=== PATIENT | male | born 1955 | race Asian ===

== ENCOUNTER → 2018-02-24 | Outpatient (CLI) | payer MEDICARE | LOC: COL.RAD 11:06 | DX: M25.511 Pain in right shoulder (principal); M25.611 Stiffness of right shoulder, not elsewhere classified; Z99.2 Dependence on renal dialysis ==

== ENCOUNTER → 2018-03-22 | Outpatient (CLI) | payer MEDICARE, OTHER ==
[~2018-03-22] MED LIST: AMOXICILLIN/CLA1 TA1 PO; ASPIRIN 32325 MG/TA1 PO; CULTURELLE CAP1 EAC1 PO; ENULOSE10 GM/15 M; FOLIC ACID 11 MG/TA1 PO; GLUCAGON EMERGEN1 M1 SQ; HUMALOG100 U/ML SQ; LANTUS100 U/ML SQ; LEVAQUIN 5500 MG/TA1 PO; MELATONIN5 M1 SL; MUCINEX 60600 MG/TA1 PO; PRIL40 PO; ROXICODONE 55 MG/TAB PO; SYNTHROID0.1 MG/TAB PO; TYLENOL 325MG325 MG PO; ZOFRAN ODT4 MG PO
== END ==
LOC: COL.RAD 10:00
DX: J18.9 Pneumonia, unspecified organism (principal); G92 Toxic encephalopathy; N13.9 Obstructive and reflux uropathy, unspecified; R13.12 Dysphagia, oropharyngeal phase
CPT/HCPCS: G8996-GN; G8997-GN; G8998-GN

== ENCOUNTER 2018-03-27 08:43 | Inpatient (IN) | payer MEDICARE, OTHER ==
[~2018-03-27] VITALS: Ht 170.2 cm; Wt 82.6 kg
[2018-03-27] VITALS (612 sets, daily range): BP systolic 145–155; BP diastolic 72–90; PULSE 65–73; TEMP 96–97.6; O2SAT 91–100
[~2018-03-27 08:43] MED LIST changes: -ENULOSE10 GM/15 M; +ENULOSE10 GM/15 M PO; +MELATONIN5 M1 PO; -MELATONIN5 M1 SL
[2018-03-27 08:57] LABS: ARTERIAL BLD GAS O2 SATURATION 86.7 % (92-100); ARTERIAL BLD GAS TCO2 CT 24.8; ARTERIAL BLOOD GAS BASE EXCESS 1.3 (-2-2); ARTERIAL BLOOD GAS HCO3 23.8 meq/L (22-26); ARTERIAL BLOOD GAS PCO2 30.5 mmHg (35-45); ARTERIAL BLOOD GAS PO2 50.6 mmHg (80-100); ARTERIAL BLOOD GAS pH 7.51 (7.35-7.45)
[2018-03-27 09:05] LABS: MEAN CELL VOLUME 87 fl (80.0-100.0); MEAN CORPUSCULAR HGB CONC 32 g/dl (33.0-37.0); MEAN PLATELET VOLUME 9.7 fl (7.4-10.4); PLATELET COUNT 119 K/mm3 (130-400); RED BLOOD COUNT 3.34 M/mm3 (4.20-5.60); REDCELL DISTRIBUTION WIDTH-CV 19.9 % (11.5-14.5)
[2018-03-27 09:13] LABS: HEMATOCRIT 29.2 % (42.0-52.0); HEMOGLOBIN 9.4 g/dl (13.5-18.0); INR 1.1 (0.8-3.0); MEAN CORPUSCULAR HEMOGLOBIN 28 pg (27.0-31.0)
[2018-03-27 09:15] LABS: PARTIAL THROMBOPLASTIN TIME 37.3 SECONDS (26.0-37.0)
[2018-03-27 09:20] LABS: ALANINE AMINOTRANSFERASE 35 U/L (21-72); ALBUMIN 2.3 gm/dL (3.5-5.0); ALKALINE PHOSPHATASE 361 U/L (50-136); ANION GAP 3 mmol/L (7-16); AST,SGOT 78 U/L (15-37); BILIRUBIN,TOTAL 1.9 mg/dL (0.0-1.0); BLOOD UREA NITROGEN 20 mg/dL (9-20); C-REACTIVE PROTEIN 4.6 mg/dL (0.0-0.9); CALCIUM 7.9 mg/dL (8.4-10.2); CARBON DIOXIDE 26 mmol/L (22-30); CHLORIDE 107 mmol/L (98-107); CREATININE, serum 2.05 mg/dL (0.66-1.25); GLUCOSE 127 mg/dL (74-106); LIPASE 79 U/L (23-300); SODIUM 136 mmol/L (137-145); TOTAL PROTEIN 7.2 gm/dL (6.4-8.2)
[2018-03-27 09:27] LABS: AMMONIA 198 umol/L (11-35)
[2018-03-27 09:32] LABS: ERYTHROCYTE SEDIMENTATION RATE 104 mm/hr (0-30)
[2018-03-27 09:38] LABS: TROPONIN-I < 0.012 ng/mL (0.000-0.034)
[2018-03-27 09:39] LABS: BAND 2 % (0-10); EOSINOPHIL 1 % (0-4); LYMPHOCYTE 24 % (20.0-51.0); NEUTROPHILS 66 % (42.0-75.2); PLATELET ESTIMATE NORMAL (NORMAL)
[2018-03-27 10:24] LABS: COLLECTION METHOD CLEAN CATCH
[2018-03-27 10:40] LABS: PH 8 (5-8); SQUAMOUS EPITHELIAL None Seen /hpf; URINE APPEARANCE Hazy; URINE BACTERIA None Seen /hpf; URINE BILIRUBIN Negative (NEGATIVE); URINE BLOOD 1+ (NEGATIVE); URINE COLOR Yellow; URINE GLUCOSE Negative (NEGATIVE); URINE KETONE Negative (NEGATIVE); URINE LEUKOCYTE ESTERASE 3+ (NEGATIVE); URINE NITRATE Negative (NEGATIVE); URINE PROTEIN(semi-quant) Negative (NEGATIVE); URINE RBC 20-50 /hpf
[2018-03-27] MEDS ORDERED: LASIX 80MG TABL80 MG PO (10:53)
[2018-03-27] MEDS ORDERED: MULTI VITAMINS1 TAB PO (10:54)
[2018-03-28] VITALS (467 sets, daily range): BP systolic 101–131; BP diastolic 53–72; PULSE 63–81; TEMP 96.9–98.4; O2SAT 100
[2018-03-28 05:49] LABS: BASO % 0.8 % (0.0-2.0); EOS # 0.3 (0.0-0.7); EOS % 5.2 % (0-4.0); GRAN # 2.7 (1.4-6.5); GRAN % 57.1 % (42.2-75.2); HEMATOCRIT 29.6 % (42.0-52.0); HEMOGLOBIN 9.6 g/dl (13.5-18.0); LYMPH # 1.2 (1.2-3.4); LYMPH % 25.6 % (20.0-51.0); MEAN CELL VOLUME 87 fl (80.0-100.0); MEAN CORPUSCULAR HEMOGLOBIN 28 pg (27.0-31.0); MEAN CORPUSCULAR HGB CONC 32 g/dl (33.0-37.0); MEAN PLATELET VOLUME 9.3 fl (7.4-10.4); MONO # 0.5 (0.1-0.6); MONO % 11.1 % (1.7-9.3); PLATELET COUNT 124 K/mm3 (130-400); REDCELL DISTRIBUTION WIDTH-CV 19.9 % (11.5-14.5)
[2018-03-28 06:02] LABS: CALCIUM 8.1 mg/dL (8.4-10.2); CREATININE, serum 2.19 mg/dL (0.66-1.25); POTASSIUM 3.8 mmol/L (3.4-5.0)
[2018-03-29 01:00] VITALS: BP 126/66; PULSE 76; TEMP 97.6
[2018-03-29 03:40] VITALS: BP 123/64; PULSE 76; TEMP 98.2
[2018-03-29 06:55] LABS: BASO % 0.6 % (0.0-2.0); EOS # 0.4 (0.0-0.7); EOS % 7.4 % (0-4.0); GRAN # 2.6 (1.4-6.5); GRAN % 52.4 % (42.2-75.2); LYMPH # 1.4 (1.2-3.4); LYMPH % 27.9 % (20.0-51.0); MEAN CELL VOLUME 89 fl (80.0-100.0); MEAN CORPUSCULAR HGB CONC 32 g/dl (33.0-37.0); MEAN PLATELET VOLUME 9.8 fl (7.4-10.4); MONO # 0.6 (0.1-0.6); MONO % 11.5 % (1.7-9.3); PLATELET COUNT 120 K/mm3 (130-400); REDCELL DISTRIBUTION WIDTH-CV 20.9 % (11.5-14.5)
[2018-03-29 06:59] LABS: HEMATOCRIT 31.1 % (42.0-52.0); HEMOGLOBIN 9.8 g/dl (13.5-18.0); MEAN CORPUSCULAR HEMOGLOBIN 28 pg (27.0-31.0)
[2018-03-29 07:05] LABS: CALCIUM 8.5 mg/dL (8.4-10.2); CREATININE, serum 1.8 mg/dL (0.66-1.25); POTASSIUM 3.9 mmol/L (3.4-5.0)
[2018-03-29 07:38] VITALS: BP 118/52; PULSE 76; TEMP 97.7
[2018-03-29 11:07] VITALS: BP 108/46; PULSE 75; TEMP 96.7
[2018-03-29 15:28] VITALS: BP 124/59; PULSE 74; TEMP 98.1
[2018-03-29 21:47] VITALS: BP 121/56; PULSE 77; TEMP 97.6
[2018-03-30 03:57] VITALS: BP 105/46; PULSE 81; TEMP 97.8
[2018-03-30 08:03] VITALS: BP 119/60; PULSE 75; TEMP 98.6
[2018-03-30 10:53] VITALS: BP 131/64; PULSE 71; TEMP 98
[2018-03-30 16:54] VITALS: BP 124/58; PULSE 76; TEMP 98.1
[2018-03-30 21:25] VITALS: BP 136/54; PULSE 78; TEMP 96.8
[2018-03-31] VITALS (18 sets, daily range): BP systolic 77–144; BP diastolic 48–92; PULSE 71–78; TEMP 97–98.4
[2018-03-31 06:12] LABS: BASO % 0.7 % (0.0-2.0); EOS # 0.4 (0.0-0.7); EOS % 8.2 % (0-4.0); GRAN # 2.3 (1.4-6.5); GRAN % 51.5 % (42.2-75.2); LYMPH # 1.1 (1.2-3.4); LYMPH % 25.9 % (20.0-51.0); MEAN CELL VOLUME 87 fl (80.0-100.0); MEAN CORPUSCULAR HGB CONC 32 g/dl (33.0-37.0); MEAN PLATELET VOLUME 9.5 fl (7.4-10.4); MONO # 0.6 (0.1-0.6); MONO % 13.2 % (1.7-9.3); PLATELET COUNT 111 K/mm3 (130-400); RED BLOOD COUNT 3.18 M/mm3 (4.20-5.60)
[2018-03-31 06:13] LABS: HEMATOCRIT 27.8 % (42.0-52.0); MEAN CORPUSCULAR HEMOGLOBIN 28 pg (27.0-31.0)
[2018-03-31 06:21] LABS: CREATININE, serum 2.11 mg/dL (0.66-1.25); POTASSIUM 4.4 mmol/L (3.4-5.0)
[2018-04-01 00:38] VITALS: BP 140/74; PULSE 85
[2018-04-01 05:04] VITALS: BP 132/72; PULSE 77
[2018-04-01 07:10] LABS: EOS # 0.3 (0.0-0.7); GRAN # 2.1 (1.4-6.5); GRAN % 52.6 % (42.2-75.2); LYMPH # 1.1 (1.2-3.4); LYMPH % 26.8 % (20.0-51.0); MEAN CELL VOLUME 89 fl (80.0-100.0); MEAN CORPUSCULAR HGB CONC 31 g/dl (33.0-37.0); MEAN PLATELET VOLUME 9.3 fl (7.4-10.4); MONO # 0.5 (0.1-0.6); MONO % 11.3 % (1.7-9.3); PLATELET COUNT 98 K/mm3 (130-400); RED BLOOD COUNT 3.53 M/mm3 (4.20-5.60); REDCELL DISTRIBUTION WIDTH-CV 20.2 % (11.5-14.5)
[2018-04-01 07:14] LABS: HEMATOCRIT 31.5 % (42.0-52.0); HEMOGLOBIN 9.9 g/dl (13.5-18.0); MEAN CORPUSCULAR HEMOGLOBIN 28 pg (27.0-31.0)
[2018-04-01 07:17] LABS: CALCIUM 8.1 mg/dL (8.4-10.2); CREATININE, serum 1.66 mg/dL (0.66-1.25); POTASSIUM 3.6 mmol/L (3.4-5.0)
[2018-04-01 09:34] VITALS: BP 120/69; PULSE 70; TEMP 98.7
[2018-04-01 12:26] VITALS: BP 121/71; PULSE 74; TEMP 98.2
[2018-04-01] MEDS ORDERED: NOVLOG SQ (15:52)
== END 2018-04-01 16:40 | DRG 441 ==
LOC: COL.ER 08:43 → MEDICAL 11:05 → ICU 11:05 → MEDICAL 03-28 11:26
PROVIDERS: Emergency Medicine; Internal Medicine
PROC: 5A1D70Z Performance of Urinary Filtration, Intermittent, Less than 6 Hours Per Day (ICD-10-PCS; principal; 2018-03-28)
PROC: 5A1D70Z Performance of Urinary Filtration, Intermittent, Less than 6 Hours Per Day (ICD-10-PCS; 2018-03-31)
DX: K72.00 Acute and subacute hepatic failure without coma (principal); N18.6 End stage renal disease; I12.0 Hypertensive chronic kidney disease with stage 5 chronic kidney disease or end stage renal disease; N25.81 Secondary hyperparathyroidism of renal origin; E87.1 Hypo-osmolality and hyponatremia; E46 Unspecified protein-calorie malnutrition; E11.22 Type 2 diabetes mellitus with diabetic chronic kidney disease; Z99.2 Dependence on renal dialysis; K70.30 Alcoholic cirrhosis of liver without ascites; E78.5 Hyperlipidemia, unspecified; E11.42 Type 2 diabetes mellitus with diabetic polyneuropathy; D63.1 Anemia in chronic kidney disease; Z89.511 Acquired absence of right leg below knee; Z79.4 Long term (current) use of insulin; D69.6 Thrombocytopenia, unspecified; E11.649 Type 2 diabetes mellitus with hypoglycemia without coma; D50.0 Iron deficiency anemia secondary to blood loss (chronic); M89.511 Osteolysis, right shoulder; Z68.30 Body mass index [BMI] 30.0-30.9, adult
CPT/HCPCS: A4314; J0696; J0882; J1650; J1815; J2916; J3301

== ENCOUNTER → 2018-04-05 | Outpatient (REF) ==
[~2018-04-05] MED LIST changes: +LASIX 80MG TABL80 MG PO; +MULTI VITAMINS1 TAB PO; +NOVLOG SQ
== END ==
LOC: ZLAB.STJ 14:39
DX: E72.20 Disorder of urea cycle metabolism, unspecified (principal)

== ENCOUNTER 2018-04-09 21:50 | Inpatient (IN) | payer MEDICARE, OTHER ==
[~2018-04-09] VITALS: Ht 175.3 cm; Wt 82.8 kg
[2018-04-09 22:15] LABS: EOS # 0.2 (0.0-0.7); EOS % 2.6 % (0-4.0); GRAN # 4.3 (1.4-6.5); GRAN % 73.7 % (42.2-75.2); LYMPH # 0.8 (1.2-3.4); LYMPH % 14.2 % (20.0-51.0); MEAN CELL VOLUME 89 fl (80.0-100.0); MEAN CORPUSCULAR HGB CONC 32 g/dl (33.0-37.0); MEAN PLATELET VOLUME 10.6 fl (7.4-10.4); MONO # 0.5 (0.1-0.6); MONO % 9.2 % (1.7-9.3); PLATELET COUNT 72 K/mm3 (130-400); RED BLOOD COUNT 3.31 M/mm3 (4.20-5.60); REDCELL DISTRIBUTION WIDTH-CV 22.9 % (11.5-14.5)
[2018-04-09 22:23] LABS: HEMATOCRIT 29.3 % (42.0-52.0); HEMOGLOBIN 9.5 g/dl (13.5-18.0); MEAN CORPUSCULAR HEMOGLOBIN 29 pg (27.0-31.0)
[2018-04-09 22:25] LABS: INR 1.1 (0.8-3.0)
[2018-04-09 22:30] LABS: ALANINE AMINOTRANSFERASE 100 U/L (21-72); ALBUMIN 2.5 gm/dL (3.5-5.0); ALKALINE PHOSPHATASE 334 U/L (50-136); AST,SGOT 156 U/L (15-37); BILIRUBIN,TOTAL 1.8 mg/dL (0.0-1.0); BLOOD UREA NITROGEN 28 mg/dL (9-20); CALCIUM 7.9 mg/dL (8.4-10.2); CARBON DIOXIDE 21 mmol/L (22-30); CREATININE, serum 1.05 mg/dL (0.66-1.25); GLUCOSE 227 mg/dL (74-106); POTASSIUM 4.1 mmol/L (3.4-5.0); SODIUM 139 mmol/L (137-145); TOTAL PROTEIN 6.9 gm/dL (6.4-8.2)
[2018-04-09 22:31] LABS: ALCOHOL(ethanol),MEDICAL < 10 mg/dL
[2018-04-09 22:32] LABS: CHLORIDE 112 mmol/L (98-107)
[2018-04-09 22:33] LABS: ANION GAP 6 mmol/L (7-16)
[2018-04-09 22:45] LABS: TROPONIN-I < 0.012 ng/mL (0.000-0.034)
[2018-04-09 22:59] LABS: ARTERIAL BLD GAS O2 SATURATION 96.4 % (92-100); ARTERIAL BLD GAS TCO2 CT 22.9; ARTERIAL BLOOD GAS BASE EXCESS -0.4 (-2-2); ARTERIAL BLOOD GAS PCO2 29.1 mmHg (35-45); ARTERIAL BLOOD GAS PO2 87.7 mmHg (80-100)
[2018-04-09 23:26] LABS: COLLECTION METHOD CLEAN CATCH
[2018-04-09 23:38] LABS: MUCOUS Present /lpf; PH 6 (5-8); SQUAMOUS EPITHELIAL 0-2 /hpf; URINE APPEARANCE Hazy; URINE BACTERIA Rare /hpf; URINE BILIRUBIN Negative (NEGATIVE); URINE BLOOD 2+ (NEGATIVE); URINE COLOR Amber; URINE GLUCOSE Negative (NEGATIVE); URINE KETONE Negative (NEGATIVE); URINE LEUKOCYTE ESTERASE Trace (NEGATIVE); URINE NITRATE Negative (NEGATIVE); URINE PROTEIN(semi-quant) Negative (NEGATIVE); URINE RBC >50 /hpf
[2018-04-10] VITALS (663 sets, daily range): BP systolic 121–167; BP diastolic 57–81; PULSE 69–87; TEMP 96.8–99.6; O2SAT 99–100
[2018-04-10 01:22] LABS: ARTERIAL BLD GAS O2 SATURATION 99.2 % (92-100); ARTERIAL BLOOD GAS BASE EXCESS 1.7 (-2-2); ARTERIAL BLOOD GAS HCO3 24.1 meq/L (22-26); ARTERIAL BLOOD GAS PCO2 30.3 mmHg (35-45); ARTERIAL BLOOD GAS pH 7.52 (7.35-7.45)
[2018-04-10 01:24] LABS: ARTERIAL BLOOD GAS PO2 280.2 mmHg (80-100)
[2018-04-10] MEDS ORDERED: LANTUS100 U/ML SQ (03:29)
[2018-04-10] MEDS ORDERED: ROXICODONE 55 MG/TAB PO (03:30)
[2018-04-10 03:39] LABS: ARTERIAL BLD GAS O2 SATURATION 98.7 % (92-100); ARTERIAL BLOOD GAS BASE EXCESS 1.9 (-2-2); ARTERIAL BLOOD GAS HCO3 23.2 meq/L (22-26); ARTERIAL BLOOD GAS PCO2 26.3 mmHg (35-45); ARTERIAL BLOOD GAS pH 7.56 (7.35-7.45)
[2018-04-10 03:40] LABS: ARTERIAL BLOOD GAS PO2 135.5 mmHg (80-100)
[2018-04-10 06:13] LABS: EOS # 0.1 (0.0-0.7); GRAN # 5.5 (1.4-6.5); GRAN % 77.1 % (42.2-75.2); LYMPH # 0.9 (1.2-3.4); MEAN CELL VOLUME 87 fl (80.0-100.0); MEAN CORPUSCULAR HGB CONC 34 g/dl (33.0-37.0); MEAN PLATELET VOLUME 10.9 fl (7.4-10.4); MONO # 0.7 (0.1-0.6); MONO % 9.6 % (1.7-9.3); PLATELET COUNT 80 K/mm3 (130-400); RED BLOOD COUNT 3.35 M/mm3 (4.20-5.60); REDCELL DISTRIBUTION WIDTH-CV 22.7 % (11.5-14.5)
[2018-04-10 06:18] LABS: HEMATOCRIT 29.2 % (42.0-52.0); HEMOGLOBIN 9.8 g/dl (13.5-18.0); MEAN CORPUSCULAR HEMOGLOBIN 29 pg (27.0-31.0)
[2018-04-10 06:28] LABS: ALBUMIN 2.4 gm/dL (3.5-5.0); BILIRUBIN,TOTAL 1.8 mg/dL (0.0-1.0); CALCIUM 8.3 mg/dL (8.4-10.2); CREATININE, serum 1.36 mg/dL (0.66-1.25); MAGNESIUM 1.6 mg/dL (1.6-2.3); PHOSPHOROUS 4.3 mg/dL (2.5-4.5); POTASSIUM 4.1 mmol/L (3.4-5.0); TOTAL PROTEIN 6.8 gm/dL (6.4-8.2)
[2018-04-11] VITALS (995 sets, daily range): BP systolic 127–157; BP diastolic 57–79; PULSE 85–89; TEMP 98.2–98.9; O2SAT 85–100
[2018-04-11 05:35] LABS: ARTERIAL BLD GAS O2 SATURATION 98.2 % (92-100); ARTERIAL BLD GAS TCO2 CT 18.8; ARTERIAL BLOOD GAS BASE EXCESS -3.3 (-2-2); ARTERIAL BLOOD GAS HCO3 18.1 meq/L (22-26); ARTERIAL BLOOD GAS pH 7.53 (7.35-7.45)
[2018-04-11 05:36] LABS: ARTERIAL BLOOD GAS PCO2 22.4 mmHg (35-45); ARTERIAL BLOOD GAS PO2 154.6 mmHg (80-100)
[2018-04-11 06:00] LABS: BASO % 0.1 % (0.0-2.0); EOS # 0.1 (0.0-0.7); EOS % 1.1 % (0-4.0); GRAN # 5.8 (1.4-6.5); GRAN % 78.6 % (42.2-75.2); LYMPH # 0.7 (1.2-3.4); LYMPH % 9.9 % (20.0-51.0); MEAN CELL VOLUME 89 fl (80.0-100.0); MEAN CORPUSCULAR HEMOGLOBIN 30 pg (27.0-31.0); MEAN CORPUSCULAR HGB CONC 33 g/dl (33.0-37.0); MEAN PLATELET VOLUME 11.3 fl (7.4-10.4); MONO # 0.7 (0.1-0.6); MONO % 9.9 % (1.7-9.3); PLATELET COUNT 86 K/mm3 (130-400); RED BLOOD COUNT 3.39 M/mm3 (4.20-5.60); REDCELL DISTRIBUTION WIDTH-CV 24.2 % (11.5-14.5)
[2018-04-11 06:01] LABS: HEMATOCRIT 30.1 % (42.0-52.0)
[2018-04-11 06:04] LABS: ALBUMIN 2.5 gm/dL (3.5-5.0); BILIRUBIN,TOTAL 2.1 mg/dL (0.0-1.0); CALCIUM 8.4 mg/dL (8.4-10.2); CREATININE, serum 1.63 mg/dL (0.66-1.25); PHOSPHOROUS 4.4 mg/dL (2.5-4.5); POTASSIUM 3.9 mmol/L (3.4-5.0)
[2018-04-12] VITALS (1420 sets, daily range): BP systolic 111–154; BP diastolic 57–83; PULSE 68–90; TEMP 96.9–98.9; O2SAT 82–100
[2018-04-12 05:57] LABS: ARTERIAL BLD GAS O2 SATURATION 98.3 % (92-100); ARTERIAL BLD GAS TCO2 CT 21.2; ARTERIAL BLOOD GAS HCO3 20.4 meq/L (22-26); ARTERIAL BLOOD GAS PCO2 27.1 mmHg (35-45); ARTERIAL BLOOD GAS pH 7.49 (7.35-7.45)
[2018-04-12 06:01] LABS: ARTERIAL BLOOD GAS PO2 132.5 mmHg (80-100)
[2018-04-12 06:31] LABS: BASO % 0.1 % (0.0-2.0); EOS # 0.2 (0.0-0.7); EOS % 2.5 % (0-4.0); GRAN # 5.6 (1.4-6.5); GRAN % 78.7 % (42.2-75.2); LYMPH # 0.6 (1.2-3.4); LYMPH % 8.7 % (20.0-51.0); MEAN CELL VOLUME 91 fl (80.0-100.0); MEAN CORPUSCULAR HGB CONC 32 g/dl (33.0-37.0); MEAN PLATELET VOLUME 10.2 fl (7.4-10.4); MONO # 0.7 (0.1-0.6); MONO % 9.7 % (1.7-9.3); PLATELET COUNT 81 K/mm3 (130-400); RED BLOOD COUNT 3.33 M/mm3 (4.20-5.60); REDCELL DISTRIBUTION WIDTH-CV 24.2 % (11.5-14.5)
[2018-04-12 06:35] LABS: HEMATOCRIT 30.2 % (42.0-52.0); HEMOGLOBIN 9.7 g/dl (13.5-18.0); MEAN CORPUSCULAR HEMOGLOBIN 29 pg (27.0-31.0)
[2018-04-12 06:45] LABS: ALBUMIN 2.4 gm/dL (3.5-5.0); BILIRUBIN,TOTAL 1.8 mg/dL (0.0-1.0); CALCIUM 8.2 mg/dL (8.4-10.2); CREATININE, serum 1.64 mg/dL (0.66-1.25); PHOSPHOROUS 4.3 mg/dL (2.5-4.5); POTASSIUM 3.8 mmol/L (3.4-5.0); TOTAL PROTEIN 6.7 gm/dL (6.4-8.2)
[2018-04-12 06:51] LABS: PRE ALBUMIN 6.3 mg/dL (17.6-36.0)
[2018-04-13] VITALS (763 sets, daily range): BP systolic 108–165; BP diastolic 52–67; PULSE 66–78; TEMP 97.3–98.1; O2SAT 47–100
[2018-04-13 05:10] LABS: BASO % 0.2 % (0.0-2.0); EOS # 0.2 (0.0-0.7); EOS % 3.4 % (0-4.0); GRAN # 4.5 (1.4-6.5); GRAN % 77.2 % (42.2-75.2); LYMPH # 0.6 (1.2-3.4); LYMPH % 9.8 % (20.0-51.0); MEAN CELL VOLUME 94 fl (80.0-100.0); MEAN CORPUSCULAR HGB CONC 32 g/dl (33.0-37.0); MEAN PLATELET VOLUME 11.6 fl (7.4-10.4); MONO # 0.5 (0.1-0.6); MONO % 9.1 % (1.7-9.3); PLATELET COUNT 77 K/mm3 (130-400); RED BLOOD COUNT 3.32 M/mm3 (4.20-5.60)
[2018-04-13 05:12] LABS: HEMATOCRIT 31.1 % (42.0-52.0); HEMOGLOBIN 9.8 g/dl (13.5-18.0); MEAN CORPUSCULAR HEMOGLOBIN 30 pg (27.0-31.0)
[2018-04-13 05:35] LABS: ALANINE AMINOTRANSFERASE 84 U/L (21-72); ALBUMIN 2.4 gm/dL (3.5-5.0); ALKALINE PHOSPHATASE 336 U/L (50-136); AMMONIA < 9 umol/L (11-35); ANION GAP 3 mmol/L (7-16); AST,SGOT 93 U/L (15-37); BILIRUBIN,TOTAL 1.4 mg/dL (0.0-1.0); BLOOD UREA NITROGEN 27 mg/dL (9-20); CALCIUM 8.3 mg/dL (8.4-10.2); CARBON DIOXIDE 27 mmol/L (22-30); CHLORIDE 115 mmol/L (98-107); CREATININE, serum 0.99 mg/dL (0.66-1.25); GLUCOSE 238 mg/dL (74-106); POTASSIUM 4.2 mmol/L (3.4-5.0); SODIUM 145 mmol/L (137-145); TOTAL PROTEIN 6.7 gm/dL (6.4-8.2)
[2018-04-13 06:52] LABS: ARTERIAL BLD GAS O2 SATURATION 88.8 % (92-100); ARTERIAL BLD GAS TCO2 CT 27.4; ARTERIAL BLOOD GAS BASE EXCESS 1.6 (-2-2); ARTERIAL BLOOD GAS HCO3 26.2 meq/L (22-26); ARTERIAL BLOOD GAS PCO2 40.9 mmHg (35-45); ARTERIAL BLOOD GAS PO2 59.8 mmHg (80-100); ARTERIAL BLOOD GAS pH 7.42 (7.35-7.45)
[2018-04-14 00:15] VITALS: BP 142/62; PULSE 78; TEMP 98
[2018-04-14 01:20] VITALS: BP 146/67; PULSE 77; TEMP 97.7
[2018-04-14 03:17] VITALS: BP 122/54; PULSE 80; TEMP 98.3
[2018-04-14 07:23] VITALS: BP 127/51; PULSE 83; TEMP 98.7
[2018-04-14] MEDS ORDERED: TESSALON P100 MG/CAP PO (11:23)
[2018-04-14] MEDS ORDERED: OMNICEF 300MG300 MG PO (11:25)
[2018-04-14] MEDS ORDERED: ROXICODONE 55 MG/TAB PO (11:27)
[2018-04-14 12:00] VITALS: BP 146/67; PULSE 77; TEMP 97.7
[2018-04-14 14:08] VITALS: BP 146/67; PULSE 77; TEMP 97.7
[2018-04-14] MEDS ORDERED: LANTUS100 U/ML SQ (16:07)
== END 2018-04-14 15:12 | DRG 441 ==
LOC: COL.ER 21:50 → ICU 23:16 → MEDICAL 04-13 15:01
PROVIDERS: Emergency Medicine; Internal Medicine Critical Care Medicine; Internal Medicine Nephrology; Nurse Practitioner Family
PROC: 5A1945Z Respiratory Ventilation, 24-96 Consecutive Hours (ICD-10-PCS; principal; 2018-04-10)
PROC: 5A1D70Z Performance of Urinary Filtration, Intermittent, Less than 6 Hours Per Day (ICD-10-PCS; 2018-04-12)
DX: K71.10 Toxic liver disease with hepatic necrosis, without coma (principal); N18.6 End stage renal disease; J96.01 Acute respiratory failure with hypoxia; E43 Unspecified severe protein-calorie malnutrition; I12.0 Hypertensive chronic kidney disease with stage 5 chronic kidney disease or end stage renal disease; N25.81 Secondary hyperparathyroidism of renal origin; N39.0 Urinary tract infection, site not specified; E87.3 Alkalosis; K70.30 Alcoholic cirrhosis of liver without ascites; E11.22 Type 2 diabetes mellitus with diabetic chronic kidney disease; Z99.2 Dependence on renal dialysis; E78.5 Hyperlipidemia, unspecified; E11.42 Type 2 diabetes mellitus with diabetic polyneuropathy; Z79.4 Long term (current) use of insulin; D63.1 Anemia in chronic kidney disease; D69.6 Thrombocytopenia, unspecified; Z89.511 Acquired absence of right leg below knee; T87.81 Dehiscence of amputation stump; Z68.25 Body mass index [BMI] 25.0-25.9, adult
CPT/HCPCS: 99222; 99223-AI; 99233-AI; 99239; A4216; A4314; C9113; J0360; J0696; J0882; J1644; J1815; J2250; J2704; J3370; J3475; J7040; J7050

== ENCOUNTER → 2018-04-27 | Outpatient (REF) ==
[~2018-04-27] MED LIST changes: +OMNICEF 300MG300 MG PO; +TESSALON P100 MG/CAP PO
== END ==
LOC: ZLAB.STJ 13:57
DX: S81.802A Unspecified open wound, left lower leg, initial encounter (principal)

== ENCOUNTER 2018-04-28 12:33 | Outpatient (CLI) | payer MEDICARE, OTHER ==
[~2018-04-28] VITALS: Ht 175.3 cm; Wt 79.0 kg
[2018-04-28 13:15] VITALS: BP 138/84; PULSE 77; TEMP 96.8
[2018-04-28 14:48] VITALS: BP 145/81; PULSE 74
[2018-04-28 15:30] VITALS: BP 164/87; BP 169/84; PULSE 76; PULSE 81
[2018-04-28 15:45] VITALS: BP 171/85; PULSE 79
[2018-04-28 16:00] VITALS: BP 167/90; PULSE 78
[2018-04-28 16:45] VITALS: BP 161/78; PULSE 71
== END 2018-04-28 17:54 | disposition home or self-care (01) ==
LOC: COL.CAR 12:33
DX: T82.41XA Breakdown (mechanical) of vascular dialysis catheter, initial encounter (principal); N18.6 End stage renal disease; Z89.511 Acquired absence of right leg below knee
CPT/HCPCS: J1644

== ENCOUNTER 2018-05-02 22:09 | Observation (INO) | payer MEDICARE, OTHER ==
[~2018-05-02] VITALS: Ht 175.3 cm; Wt 75.2 kg
[2018-05-02] VITALS (15 sets, daily range): O2SAT 95–98
[2018-05-03] VITALS (407 sets, daily range): BP systolic 118–167; BP diastolic 59–110; PULSE 71–84; TEMP 97.7–98.6; O2SAT 74–100
[2018-05-03] MEDS ORDERED: K-TAB20 PO (03:03)
[2018-05-03] MEDS ORDERED: ZOLOFT 50MG50 MG PO (03:04)
[2018-05-03] MEDS ORDERED: ALDACTONE 25MG25 M1 PO (03:05)
[2018-05-03] MEDS ORDERED: ULTRAM 50MG TAB50 MG PO (03:09)
[2018-05-03] MEDS ORDERED: FOLIC ACID 11 MG/TA1 PO (03:50)
[2018-05-03] MEDS ORDERED: TYLENOL 325MG325 MG PO (03:53)
[2018-05-03] MEDS ORDERED: ASPIRIN 32325 MG/TAB PO (03:53)
[2018-05-03] MEDS ORDERED: TENORMIN 2525 MG/TAB PO (03:54)
[2018-05-03] MEDS ORDERED: LASIX 40MG TABL40 MG PO (03:56)
[2018-05-03] MEDS ORDERED: HUMALOG100 U/ML SQ (03:59)
[2018-05-03] MEDS ORDERED: [UNRECOGNIZED DRUG - OTHER] TP (04:01)
[2018-05-03] MEDS ORDERED: MOTRIN 400400 MG/TAB PO (04:02)
[2018-05-03] MEDS ORDERED: ATIVAN 0.50.5 MG/TAB PO (04:02)
[2018-05-03] MEDS ORDERED: LEVEMIR FLEXPEN SQ (04:03)
[2018-05-03 09:57] LABS: BASO % 0.6 % (0.0-2.0); EOS # 0.1 (0.0-0.7); EOS % 2.5 % (0-4.0); GRAN # 3.2 (1.4-6.5); GRAN % 66.5 % (42.2-75.2); HEMOGLOBIN 11.3 g/dl (13.5-18.0); LYMPH % 20.7 % (20.0-51.0); MEAN CELL VOLUME 91 fl (80.0-100.0); MEAN CORPUSCULAR HEMOGLOBIN 30 pg (27.0-31.0); MEAN CORPUSCULAR HGB CONC 33 g/dl (33.0-37.0); MEAN PLATELET VOLUME 9.9 fl (7.4-10.4); MONO # 0.4 (0.1-0.6); MONO % 9.3 % (1.7-9.3); PLATELET COUNT 120 K/mm3 (130-400); RED BLOOD COUNT 3.78 M/mm3 (4.20-5.60); REDCELL DISTRIBUTION WIDTH-CV 19.3 % (11.5-14.5)
[2018-05-03 10:00] LABS: HEMATOCRIT 34.4 % (42.0-52.0)
[2018-05-03 10:06] LABS: ALBUMIN 2.7 gm/dL (3.5-5.0); BILIRUBIN,TOTAL 2.2 mg/dL (0.0-1.0); CALCIUM 8.5 mg/dL (8.4-10.2); CREATININE, serum 1.12 mg/dL (0.66-1.25); POTASSIUM 3.5 mmol/L (3.4-5.0); TOTAL PROTEIN 7.1 gm/dL (6.4-8.2)
[2018-05-04 05:09] VITALS: BP 136/84; PULSE 76; TEMP 98.1
[2018-05-04 08:00] VITALS: BP 165/77; PULSE 73; TEMP 97.7
[2018-05-04 14:45] LABS: BASO % 0.6 % (0.0-2.0); EOS # 0.1 (0.0-0.7); EOS % 2.4 % (0-4.0); GRAN # 3.3 (1.4-6.5); GRAN % 67.3 % (42.2-75.2); HEMOGLOBIN 10.4 g/dl (13.5-18.0); LYMPH % 19.4 % (20.0-51.0); MEAN CELL VOLUME 91 fl (80.0-100.0); MEAN CORPUSCULAR HEMOGLOBIN 30 pg (27.0-31.0); MEAN CORPUSCULAR HGB CONC 33 g/dl (33.0-37.0); MEAN PLATELET VOLUME 9.9 fl (7.4-10.4); MONO # 0.5 (0.1-0.6); MONO % 10.1 % (1.7-9.3); PLATELET COUNT 102 K/mm3 (130-400); RED BLOOD COUNT 3.48 M/mm3 (4.20-5.60); REDCELL DISTRIBUTION WIDTH-CV 19.3 % (11.5-14.5)
[2018-05-04 14:48] LABS: HEMATOCRIT 31.7 % (42.0-52.0)
[2018-05-04 14:51] LABS: ALBUMIN 2.4 gm/dL (3.5-5.0); BILIRUBIN,TOTAL 1.4 mg/dL (0.0-1.0); CALCIUM 8.1 mg/dL (8.4-10.2); CREATININE, serum 0.71 mg/dL (0.66-1.25); POTASSIUM 3.5 mmol/L (3.4-5.0); TOTAL PROTEIN 6.7 gm/dL (6.4-8.2)
[2018-05-04 17:31] VITALS: BP 113/71; PULSE 82; TEMP 97.9
[2018-05-04 20:28] VITALS: BP 139/64; PULSE 80; TEMP 98.2
[2018-05-05 01:36] VITALS: BP 142/61; PULSE 75; TEMP 98.4
[2018-05-05 03:47] VITALS: BP 164/73; PULSE 79; TEMP 97.8
[2018-05-05 05:53] VITALS: BP 154/77
[2018-05-05 06:50] VITALS: BP 153/65; PULSE 80; TEMP 97.9
[2018-05-05 11:43] VITALS: BP 124/59; PULSE 76; TEMP 97.7
[2018-05-05] MEDS ORDERED: LACTULOSE10 GM/153 PO (13:25)
== END 2018-05-05 16:32 ==
LOC: ICU 22:09 → MEDICAL 22:38 → ICU 22:38 → MEDICAL 05-03 15:24
PROVIDERS: Nurse Practitioner
DX: E11.22 Type 2 diabetes mellitus with diabetic chronic kidney disease (principal); N18.6 End stage renal disease; D63.1 Anemia in chronic kidney disease; Z99.2 Dependence on renal dialysis; K72.90 Hepatic failure, unspecified without coma; K70.30 Alcoholic cirrhosis of liver without ascites; E03.9 Hypothyroidism, unspecified; Z89.511 Acquired absence of right leg below knee; E44.0 Moderate protein-calorie malnutrition; D69.6 Thrombocytopenia, unspecified
CPT/HCPCS: 99233-AI; G0378; G8978-GP; G8979-GP; G8987-GO; G8988-GO; G9168-GN; G9169-GN; J1644; J1815

== ENCOUNTER 2018-05-13 21:39 | Emergency (ER) | payer MEDICARE, OTHER ==
[~2018-05-13] VITALS: Ht 172.7 cm; Wt 80.0 kg
[~2018-05-13 21:39] MED LIST changes: +ALDACTONE 25MG25 M1 PO; +ASPIRIN 32325 MG/TAB PO; +ATIVAN 0.50.5 MG/TAB PO; +GLUCAGON EMERGEN1 M1 IM; -GLUCAGON EMERGEN1 M1 SQ; +K-TAB20 PO; +LACTULOSE10 GM/153 PO; +LASIX 40MG TABL40 MG PO; +LEVEMIR FLEXPEN SQ; +MOTRIN 400400 MG/TAB PO; +TENORMIN 2525 MG/TAB PO; +ULTRAM 50MG TAB50 MG PO; +ZOLOFT 50MG50 MG PO; +[UNRECOGNIZED DRUG - OTHER] TP
[2018-05-13 21:46] VITALS: TEMP 96.8
[2018-05-14 01:40] VITALS: BP 126/87; PULSE 87
== END 2018-05-14 01:50 | disposition home or self-care (01) ==
LOC: COL.ER 21:39
DX: S43.011A Anterior subluxation of right humerus, initial encounter (principal); N18.6 End stage renal disease; Z99.2 Dependence on renal dialysis; W18.39XA Other fall on same level, initial encounter; Y92.009 Unspecified place in unspecified non-institutional (private) residence as the place of occurrence of the external cause
CPT/HCPCS: J2405; J3010

== ENCOUNTER 2018-05-16 15:20 | Inpatient (IN) | payer MEDICARE, OTHER ==
[2018-05-16] VITALS (28 sets, daily range): TEMP 96.8; O2SAT 98–100
[~2018-05-16] VITALS: Wt 79.3 kg
[2018-05-16 16:01] LABS: BASO # 0.1 (0.0-0.2); EOS # 0.2 (0.0-0.7); EOS % 2.9 % (0-4.0); GRAN # 3.5 (1.4-6.5); GRAN % 68.7 % (42.2-75.2); HEMOGLOBIN 10.3 g/dl (13.5-18.0); LYMPH # 0.8 (1.2-3.4); LYMPH % 14.8 % (20.0-51.0); MEAN CELL VOLUME 91 fl (80.0-100.0); MEAN CORPUSCULAR HEMOGLOBIN 30 pg (27.0-31.0); MEAN CORPUSCULAR HGB CONC 33 g/dl (33.0-37.0); MEAN PLATELET VOLUME 11.4 fl (7.4-10.4); MONO # 0.6 (0.1-0.6); MONO % 12.4 % (1.7-9.3); PLATELET COUNT 132 K/mm3 (130-400); RED BLOOD COUNT 3.42 M/mm3 (4.20-5.60); REDCELL DISTRIBUTION WIDTH-CV 17.5 % (11.5-14.5)
[2018-05-16 16:04] LABS: PROTHROMBIN TIME 11.7 SECONDS (9.7-12.8)
[2018-05-16 16:05] LABS: HEMATOCRIT 31.1 % (42.0-52.0)
[2018-05-16 16:06] LABS: PARTIAL THROMBOPLASTIN TIME 33.8 SECONDS (26.0-37.0)
[2018-05-16 16:08] LABS: C-REACTIVE PROTEIN 3.8 mg/dL (0.0-0.9)
[2018-05-16 16:17] LABS: TROPONIN-I 0.021 ng/mL (0.000-0.034)
[2018-05-16 16:20] LABS: ALANINE AMINOTRANSFERASE 51 U/L (21-72); ALBUMIN 2.2 gm/dL (3.5-5.0); ALKALINE PHOSPHATASE 425 U/L (50-136); ANION GAP 3 mmol/L (7-16); AST,SGOT 68 U/L (15-37); BILIRUBIN,TOTAL 1.4 mg/dL (0.0-1.0); BLOOD UREA NITROGEN 30 mg/dL (9-20); CALCIUM 8.4 mg/dL (8.4-10.2); CARBON DIOXIDE 28 mmol/L (22-30); CHLORIDE 102 mmol/L (98-107); CREATININE, serum 1.73 mg/dL (0.66-1.25); GLUCOSE 118 mg/dL (74-106); MAGNESIUM 1.9 mg/dL (1.6-2.3); PHOSPHOROUS 3.2 mg/dL (2.5-4.5); SODIUM 134 mmol/L (137-145); TOTAL PROTEIN 6.3 gm/dL (6.4-8.2)
[2018-05-16 16:21] LABS: ACETAMINOPHEN < 10 ug/mL (10-30); ALCOHOL(ethanol),MEDICAL < 10 mg/dL; SALICYLATE < 1.0 mg/dL
[2018-05-16 16:48] LABS: ARTERIAL BLD GAS TCO2 CT 26.4; ARTERIAL BLOOD GAS BASE EXCESS 2.8 (-2-2); ARTERIAL BLOOD GAS HCO3 25.4 meq/L (22-26); ARTERIAL BLOOD GAS pH 7.52 (7.35-7.45)
[2018-05-16 16:49] LABS: ARTERIAL BLOOD GAS PO2 169.4 mmHg (80-100)
[2018-05-16 17:56] LABS: COLLECTION METHOD CATHETER
[2018-05-16 18:04] LABS: BUDDING YEAST Present /hpf; PH 6 (5-8); SQUAMOUS EPITHELIAL None Seen /hpf; URINE APPEARANCE Cloudy; URINE BACTERIA Rare /hpf; URINE BILIRUBIN Negative (NEGATIVE); URINE BLOOD 1+ (NEGATIVE); URINE COLOR Amber; URINE GLUCOSE Negative (NEGATIVE); URINE KETONE Negative (NEGATIVE); URINE LEUKOCYTE ESTERASE 3+ (NEGATIVE); URINE NITRATE Negative (NEGATIVE); URINE PROTEIN(semi-quant) 1+ (NEGATIVE)
[2018-05-17] VITALS (766 sets, daily range): BP systolic 109–161; BP diastolic 51–93; PULSE 66–77; TEMP 94.2–99; O2SAT 87–100
[2018-05-17 05:36] LABS: BASO # 0.1 (0.0-0.2); BASO % 0.6 % (0.0-2.0); EOS # 0.1 (0.0-0.7); EOS % 1.2 % (0-4.0); GRAN # 6.2 (1.4-6.5); GRAN % 76.2 % (42.2-75.2); HEMOGLOBIN 10.3 g/dl (13.5-18.0); LYMPH # 1.1 (1.2-3.4); LYMPH % 13.6 % (20.0-51.0); MEAN CELL VOLUME 91 fl (80.0-100.0); MEAN CORPUSCULAR HEMOGLOBIN 30 pg (27.0-31.0); MEAN CORPUSCULAR HGB CONC 33 g/dl (33.0-37.0); MEAN PLATELET VOLUME 10.5 fl (7.4-10.4); MONO # 0.7 (0.1-0.6); MONO % 8.2 % (1.7-9.3); PLATELET COUNT 141 K/mm3 (130-400); RED BLOOD COUNT 3.46 M/mm3 (4.20-5.60); REDCELL DISTRIBUTION WIDTH-CV 17.9 % (11.5-14.5)
[2018-05-17 05:39] LABS: ARTERIAL BLOOD GAS BASE EXCESS 1.2 (-2-2); ARTERIAL BLOOD GAS HCO3 23.5 meq/L (22-26); ARTERIAL BLOOD GAS PCO2 30.8 mmHg (35-45); ARTERIAL BLOOD GAS PO2 129.8 mmHg (80-100)
[2018-05-17 05:40] LABS: ARTERIAL BLD GAS O2 SATURATION 98.4 % (92-100)
[2018-05-17 05:42] LABS: HEMATOCRIT 31.4 % (42.0-52.0)
[2018-05-17 05:45] LABS: ALBUMIN 2.3 gm/dL (3.5-5.0); BILIRUBIN,TOTAL 1.5 mg/dL (0.0-1.0); CALCIUM 8.5 mg/dL (8.4-10.2); CREATININE, serum 2.14 mg/dL (0.66-1.25); POTASSIUM 4.8 mmol/L (3.4-5.0); TOTAL PROTEIN 6.4 gm/dL (6.4-8.2)
[2018-05-17] MEDS ORDERED: NOVOLOG FLEX100 U/ML SQ (05:50)
[2018-05-18] VITALS (586 sets, daily range): BP systolic 129–154; BP diastolic 71–85; PULSE 65–73; TEMP 97.5–98.2; O2SAT 92–100
[2018-05-18 08:17] LABS: BASO % 0.7 % (0.0-2.0); EOS # 0.2 (0.0-0.7); EOS % 3.6 % (0-4.0); GRAN # 3.8 (1.4-6.5); GRAN % 69.6 % (42.2-75.2); LYMPH % 17.3 % (20.0-51.0); MEAN CELL VOLUME 92 fl (80.0-100.0); MEAN CORPUSCULAR HGB CONC 33 g/dl (33.0-37.0); MEAN PLATELET VOLUME 10.7 fl (7.4-10.4); MONO # 0.5 (0.1-0.6); MONO % 8.6 % (1.7-9.3); PLATELET COUNT 141 K/mm3 (130-400); RED BLOOD COUNT 3.23 M/mm3 (4.20-5.60)
[2018-05-18 08:20] LABS: HEMATOCRIT 29.6 % (42.0-52.0); HEMOGLOBIN 9.8 g/dl (13.5-18.0); MEAN CORPUSCULAR HEMOGLOBIN 30 pg (27.0-31.0)
[2018-05-18 08:32] LABS: CALCIUM 7.9 mg/dL (8.4-10.2); CREATININE, serum 2.16 mg/dL (0.66-1.25); POTASSIUM 4.5 mmol/L (3.4-5.0)
[2018-05-18 08:56] LABS: VANCOMYCIN,RANDOM 12.24 ug/mL
[2018-05-19] VITALS (149 sets, daily range): BP systolic 138–141; BP diastolic 75–84; PULSE 65–73; TEMP 97–97.5; O2SAT 87–100
[2018-05-19 06:33] LABS: BASO % 0.7 % (0.0-2.0); EOS # 0.2 (0.0-0.7); EOS % 3.8 % (0-4.0); GRAN % 71.5 % (42.2-75.2); HEMATOCRIT 28.8 % (42.0-52.0); HEMOGLOBIN 9.6 g/dl (13.5-18.0); LYMPH # 0.9 (1.2-3.4); LYMPH % 15.8 % (20.0-51.0); MEAN CELL VOLUME 91 fl (80.0-100.0); MEAN CORPUSCULAR HEMOGLOBIN 30 pg (27.0-31.0); MEAN CORPUSCULAR HGB CONC 33 g/dl (33.0-37.0); MEAN PLATELET VOLUME 10.7 fl (7.4-10.4); MONO # 0.4 (0.1-0.6); PLATELET COUNT 134 K/mm3 (130-400); RED BLOOD COUNT 3.15 M/mm3 (4.20-5.60); REDCELL DISTRIBUTION WIDTH-CV 17.8 % (11.5-14.5)
[2018-05-19 06:44] LABS: CALCIUM 7.9 mg/dL (8.4-10.2); CREATININE, serum 2.04 mg/dL (0.66-1.25); POTASSIUM 4.8 mmol/L (3.4-5.0)
[2018-05-19] MEDS ORDERED: LANTUS100 U/ML SQ (10:19)
[2018-05-19] MEDS ORDERED: DOXYCYCLINE HY100 MG PO ×2 (10:22→12:10)
[2018-05-19] MEDS ORDERED: OMNICEF 300MG300 MG PO (10:26)
== END 2018-05-19 17:15 | DRG 871 ==
LOC: COL.ER 15:20 → ICU 17:05 → COL.ER 17:05 → ICU 05-19 17:15
PROVIDERS: Emergency Medicine; Hospitalist; Nurse Practitioner
PROC: 5A1935Z Respiratory Ventilation, Less than 24 Consecutive Hours (ICD-10-PCS; principal; 2018-05-16)
PROC: 5A1D70Z Performance of Urinary Filtration, Intermittent, Less than 6 Hours Per Day (ICD-10-PCS; 2018-05-19)
DX: A41.9 Sepsis, unspecified organism (principal); N18.6 End stage renal disease; J96.00 Acute respiratory failure, unspecified whether with hypoxia or hypercapnia; E27.40 Unspecified adrenocortical insufficiency; N39.0 Urinary tract infection, site not specified; T68.XXXA Hypothermia, initial encounter; I45.81 Long QT syndrome; E11.649 Type 2 diabetes mellitus with hypoglycemia without coma; E11.22 Type 2 diabetes mellitus with diabetic chronic kidney disease; K70.30 Alcoholic cirrhosis of liver without ascites; D63.1 Anemia in chronic kidney disease; E03.9 Hypothyroidism, unspecified; Z89.511 Acquired absence of right leg below knee; K72.90 Hepatic failure, unspecified without coma
CPT/HCPCS: 99223-AI; 99232-AI; 99239; A4216; J0696; J1644; J1815; J2060; J2543; J3010; J3370; J3475; J7050

== ENCOUNTER → 2018-05-26 | Outpatient (CLI) | payer MEDICARE, OTHER ==
[~2018-05-26] MED LIST changes: +DOXYCYCLINE HY100 MG PO; +NOVOLOG FLEX100 U/ML SQ
== END ==
LOC: COL.RAD 12:34
DX: J18.9 Pneumonia, unspecified organism (principal); R91.8 Other nonspecific abnormal finding of lung field

== ENCOUNTER 2018-05-27 21:27 | Emergency (ER) | payer MEDICARE, OTHER ==
[~2018-05-27] VITALS: Ht 175.3 cm; Wt 86.4 kg
[2018-05-27 21:28] VITALS: TEMP 97.3
[2018-05-28 00:57] VITALS: BP 144/77; PULSE 84
== END 2018-05-28 01:05 | disposition home or self-care (01) ==
LOC: COL.ER 21:27
DX: S92.352A Displaced fracture of fifth metatarsal bone, left foot, initial encounter for closed fracture (principal); S01.81XA Laceration without foreign body of other part of head, initial encounter; I12.0 Hypertensive chronic kidney disease with stage 5 chronic kidney disease or end stage renal disease; E11.22 Type 2 diabetes mellitus with diabetic chronic kidney disease; N18.6 End stage renal disease; Z79.4 Long term (current) use of insulin; Z99.2 Dependence on renal dialysis; Z23 Encounter for immunization; W05.0XXA Fall from non-moving wheelchair, initial encounter